=== PATIENT | female | born 1965 | race Caucasian/White ===

== ENCOUNTER 2018-06-25 14:20 | Inpatient (IN) ==
--- NOTE | 2018-06-25 17:33 | ED ---
HPI General Chief Complaint: Psychiatric Symptoms Stated Complaint: Psych Eval / Physent Time Seen by Provider: 06/25/18 16:58 Source: patient Mode of arrival: ambulatory Limitations: no limitations History of Present Illness HPI Narrative: The patient is a 53-year-old female who presents to the emergency department via family for psychiatric evaluation. The patient has a history of depression, recent hospitalization approximately 6 months ago in [place], [place]. The patient states she stopped taking her psychiatric medications approximately 1 week ago, has had increasing delusions according to the family. The patient saw her psychiatrist earlier today, Dr. El Moraes, who sent the patient to the emergency department for evaluation by psychiatry and admission. The patient apparently is having delusions in regards to cleaning, lice, a snake in the house, and family concerns regarding her well-being. The patient states she did recently travel to [place] and back , states she has had depression since her of cancer several years ago. The patient states her symptoms are secondary to use and Lysol. The patient denies any suicidal or homicidal ideation. She is tearful, does note depression and insomnia but denies any current suicidal ideation or homicidal ideation. Symptoms are moderate. MD complaint: feels depressed Onset (ago): week(s) Duration: intermittent History of same: Yes Relieving factors: none Exacerbating factors: none Context: new medication(s) Associated psychiatric symptoms: delusions Associated symptoms: denies other symptoms Treatments prior to arrival: placed on mental health hold Related Data Home Medications Medication Instructions Recorded Confirmed cyanocobalamin (vitamin B-12) 1,000 mcg IM QMONTH 06/25/18 06/25/18 diazepam 10 mg PO TID PRN 06/25/18 06/25/18 diphenhydramine HCl [Benadryl 25 mg PO Q4-6H 06/25/18 06/25/18 Allergy] risperidone 3 mg PO DAILY 06/25/18 06/25/18 temazepam 15 mg PO HS MDD 30 mg 06/25/18 06/25/18 Allergies Allergy/AdvReac Type Severity Reaction Status Date / Time No Known Allergies Allergy Unverified 06/25/18 17:27 Review of Systems Except as stated in HPI: all other systems reviewed are negative Constitutional Denies fever(s) Cardiovascular Denies chest pain and Denies dyspnea Respiratory Denies dyspnea Gastrointestinal Denies abdominal pain, Denies nausea and Denies vomiting Genitourinary Denies dysuria [facility] Medical History Medical History Depression (Acute) Social History Social History Substance History: Past History Smoking Status: Current every day smoker Tobacco Type: Cigarettes How Often Do You Have a Drink Containing Alcohol: Never Recent Travel in [facility] within the Last 8 Weeks: No Recent Out of Country Travel within the Last 8 Weeks: No Immunization History Tetanus Immunization: Unsure Hx Influenza Vaccine This Season: No Exam Narrative Exam Narrative: GENERAL: Awake, alert, nontoxic-appearing 53-year-old female who appears her stated age and is in no acute respiratory distress. The patient is tearful. SKIN: Focused skin assessment warm/dry. HEAD: Atraumatic. Normocephalic. EYES: Pupils equal and round. On injection secondary to crying. ENT: No nasal bleeding or discharge. Mucous membranes pink and moist. NECK: Trachea midline. No JVD. CARDIOVASCULAR: Regular rate and rhythm. No murmur appreciated. RESPIRATORY: No accessory muscle use. Clear to auscultation. Breath sounds equal bilaterally. GASTROINTESTINAL: Abdomen soft, non-tender, nondistended. MUSCULOSKELETAL: No obvious deformities. No clubbing. No cyanosis. No edema. NEUROLOGICAL: Awake and alert. No obvious cranial nerve deficits. Motor grossly within normal limits. Normal speech. PSYCHIATRIC: Tearful, insight and judgment appear normal. Course Initial Documented Vital Signs Temperature 98.3 F 06/25/18 15:21 Pulse Rate 92 H 06/25/18 15:21 Respiratory Rate 16 06/25/18 15:21 Blood Pressure 130/80 06/25/18 15:21 Pulse Oximetry 98 06/25/18 15:21 Last Documented Vital Signs Temperature 98.3 F 06/25/18 15:21 Pulse Rate 88 06/25/18 15:24 Respiratory Rate 20 06/25/18 15:24 Blood Pressure 124/74 06/25/18 15:24 Pulse Oximetry 99 06/25/18 15:24 Medical Decision Making MDM Narrative Medical decision making narrative: Labs were drawn and sent. Labs are unremarkable except for tox screen is positive for benzodiazepines and cannabinoids. Patient is medically cleared to be evaluated by psychiatry. Psychiatric evaluation was ordered. Disposition as per psych. The patient is urine has a few leukocytes and positive bacteria. She will be empirically treated for possible UTI while awaiting for culture results. Patient was given Keflex 500 mg p.o. and a prescription. Differential Diagnosis Differential Diagnosis: Differential diagnosis includes psychosis, depressive disorder with psychosis, bipolar affective disorder, schizoaffective disorder, schizophrenia, delirium, drug-induced mood disorder. Lab Data Lab results reviewed: Yes I reviewed the patient's lab results. Lab results narrative: Tox screen is positive for benzodiazepines and cannabinoids. Result diagrams: 06/25/18 17:20 06/25/18 17:20 Lab Results 06/25/18 06/25/18 06/25/18 Range/Units 17:20 17:20 17:40 WBC 5.2 (4.0-11.0) th/mm3 RBC 4.48 (4.00-5.30) mil/mm3 Hgb 14.2 (11.6-15.3) gm/dL Hct 41.3 (35.0-46.0) % MCV 92.2 (80.0-100.0) fL MCH 31.8 (27.0-34.0) pg MCHC 34.5 (32.0-36.0) % RDW 14.2 (11.6-17.2) % Plt Count 260 (150-450) th/mm3 MPV 7.8 (7.0-11.0) fL Neut % (Auto) 51.3 (16.0-70.0) % Lymph % (Auto) 32.7 (9.0-44.0) % Luna % (Auto) 13.1 H (0.0-8.0) % Eos % (Auto) 1.8 (0.0-4.0) % Baso % (Auto) 1.1 (0.0-2.0) % Neut # (Auto) 2.7 (1.8-7.7) th/mm3 Lymph # (Auto) 1.7 (1.0-4.8) th/mm3 Luna # (Auto) 0.7 (0.0-0.9) th/mm3 Eos # (Auto) 0.1 (0.0-0.4) th/mm3 Baso # (Auto) 0.1 (0.0-0.2) th/mm3 WBC Differential . Differential Comment Auto diff final Sodium 141 (136-145) meq/L Potassium 3.8 (3.5-5.1) meq/L Chloride 106 (98-107) meq/L Carbon Dioxide 28.3 (21.0-32.0) meq/L Anion Gap 7 (5-15) meq/L BUN 15 (7-18) mg/dL Creatinine 0.76 (0.50-1.00) mg/dL Estimated GFR 80 L (>89) mL/min Random Glucose 94 (74-106) mg/dL Calcium 9.2 (8.5-10.1) mg/dL Total Bilirubin 0.3 (0.2-1.0) mg/dL AST 10 L (15-37) U/L ALT 17 (10-53) U/L Alkaline Phosphatase 60 (45-117) U/L Total Protein 6.8 (6.4-8.2) g/dL Albumin 3.7 (3.4-5.0) g/dL TSH 0.781 (0.358-3.740) uIU/mL Urine Color (Yellw/Straw) Urine Clarity (Clear) Urine pH (5.0-8.5) Ur Specific [place] (1.002-1.035) Urine Protein (Neg-Trace) mg/dL Urine Glucose (UA) (Negative) mg/dL Urine Ketones (Negative) mg/dL Urine Occult Blood (Negative) Urine Nitrate (Negative) Urine Bilirubin (Negative) Urine Urobilinogen (Less than 2) mg/dL Ur Leukocyte Esterase (Negative) Urine RBC (0-3) /hpf Urine WBC (0-5) /hpf Ur Squamous Epith Cells (0-5) /hpf Urine Bacteria (None) /hpf Hyaline Casts (0-3) /lpf Urine Mucus (Occasional) /lpf Micro UA Comment Urine Culture Comments Urine Opiates Screen Neg (Neg) Ur Barbiturates Screen Neg (Neg) Ur Amphetamines Screen Neg (Neg) U Benzodiazepines Scrn Pos H (Neg) Urine Cocaine Screen Neg (Neg) U Cannabinoids Screen Pos H (Neg) Serum Alcohol Less than 3 (0-5) mg/dL 06/25/18 Range/Units 17:40 WBC (4.0-11.0) th/mm3 RBC (4.00-5.30) mil/mm3 Hgb (11.6-15.3) gm/dL Hct (35.0-46.0) % MCV (80.0-100.0) fL MCH (27.0-34.0) pg MCHC (32.0-36.0) % RDW (11.6-17.2) % Plt Count (150-450) th/mm3 MPV (7.0-11.0) fL Neut % (Auto) (16.0-70.0) % Lymph % (Auto) (9.0-44.0) % Luna % (Auto) (0.0-8.0) % Eos % (Auto) (0.0-4.0) % Baso % (Auto) (0.0-2.0) % Neut # (Auto) (1.8-7.7) th/mm3 Lymph # (Auto) (1.0-4.8) th/mm3 Luna # (Auto) (0.0-0.9) th/mm3 Eos # (Auto) (0.0-0.4) th/mm3 Baso # (Auto) (0.0-0.2) th/mm3 WBC Differential Differential Comment Sodium (136-145) meq/L Potassium (3.5-5.1) meq/L Chloride (98-107) meq/L Carbon Dioxide (21.0-32.0) meq/L Anion Gap (5-15) meq/L BUN (7-18) mg/dL Creatinine (0.50-1.00) mg/dL Estimated GFR (>89) mL/min Random Glucose (74-106) mg/dL Calcium (8.5-10.1) mg/dL Total Bilirubin (0.2-1.0) mg/dL AST (15-37) U/L ALT (10-53) U/L Alkaline Phosphatase (45-117) U/L Total Protein (6.4-8.2) g/dL Albumin (3.4-5.0) g/dL TSH (0.358-3.740) uIU/mL Urine Color [place] (Yellw/Straw) Urine Clarity Hazy H (Clear) Urine pH 5.0 (5.0-8.5) Ur Specific [place] 1.028 (1.002-1.035) Urine Protein 30 H (Neg-Trace) mg/dL Urine Glucose (UA) Negative (Negative) mg/dL Urine Ketones Trace H (Negative) mg/dL Urine Occult Blood Negative (Negative) Urine Nitrate Negative (Negative) Urine Bilirubin Negative (Negative) Urine Urobilinogen 4 or greater (Less than 2) mg/dL Ur Leukocyte Esterase Negative (Negative) Urine RBC 4 H (0-3) /hpf Urine WBC 2 (0-5) /hpf Ur Squamous Epith Cells <1 (0-5) /hpf Urine Bacteria Moderate H (None) /hpf Hyaline Casts 3 (0-3) /lpf Urine Mucus Moderate H (Occasional) /lpf Micro UA Comment Culture indicated Urine Culture Comments Culture indicated Urine Opiates Screen (Neg) Ur Barbiturates Screen (Neg) Ur Amphetamines Screen (Neg) U Benzodiazepines Scrn (Neg) Urine Cocaine Screen (Neg) U Cannabinoids Screen (Neg) Serum Alcohol (0-5) mg/dL Discharge Plan Discharge Disposition Patient Disposition: 30 Still Patient Discharge Condition Condition: Stable Discharge Details Diagnosis: Medical clearance for psychiatric admission Physicians Team ED Provider: Stephan Barragan Primary Care Provider: Lamin Oropeza Rxs /Orders / Referrals /Forms Prescriptions: No Action risperidone 3 mg Tablet 3 mg PO DAILY RF: 0 temazepam 15 mg Capsule 15 mg PO HS MDD 30 mg RF: 0 diphenhydramine HCl [Benadryl Allergy] 25 mg Tablet 25 mg PO Q4-6H RF: 0 diazepam 10 mg Tablet 10 mg PO TID PRN (Reason: Anxiety) RF: 0 cyanocobalamin (vitamin B-12) 1,000 mcg/mL Kit 1,000 mcg IM QMONTH RF: 0 Status ED Status: Medically Cleared
[2018-06-25 17:58] LABS: Baso # (Auto) 0.1 th/mm3 (0.0-0.2); Baso % (Auto) 1.1 % (0.0-2.0); Eos # (Auto) 0.1 th/mm3 (0.0-0.4); Eos % (Auto) 1.8 % (0.0-4.0); Hematocrit 41.3 % (35.0-46.0); Hemoglobin 14.2 gm/dL (11.6-15.3); Lymph # (Auto) 1.7 th/mm3 (1.0-4.8); Lymph % (Auto) 32.7 % (9.0-44.0); Mean Corpuscular HGB Conc 34.5 % (32.0-36.0); Mean Corpuscular Hemoglobin 31.8 pg (27.0-34.0); Mean Corpuscular Volume 92.2 fL (80.0-100.0); Mean Platelet Volume 7.8 fL (7.0-11.0); Mono # (Auto) 0.7 th/mm3 (0.0-0.9); Mono % (Auto) 13.1 % (0.0-8.0); Neut # (Auto) 2.7 th/mm3 (1.8-7.7); Neut % (Auto) 51.3 % (16.0-70.0); Platelet Count 260 th/mm3 (150-450); Red Blood Count 4.48 mil/mm3 (4.00-5.30); Red Cell Distribution Width 14.2 % (11.6-17.2); White Blood Count 5.2 th/mm3 (4.0-11.0)
[2018-06-25 18:15] LABS: Amphetamine Screen,Urine Neg (Neg); Barbiturate Screen,Urine Neg (Neg); Cannabinoid Screen,Urine Pos (Neg); Cocaine Screen,Urine Neg (Neg)
[2018-06-25 18:18] LABS: Bacteria,Urine Moderate /hpf; Bilirubin,Urine Negative (Negative); Clarity,Urine Hazy (Clear); Color,Urine Amber (Yellw/Straw); Glucose,Urine (UA) Negative (Negative); Hyaline Casts,Urine 3 /lpf (0-3); Leukocyte Esterase,Urine Negative (Negative); Mucus,Urine Moderate /lpf (Occasional); Nitrite,Urine Negative (Negative); Specific Gravity,Urine 1.028 (1.002-1.035); Squamous Epithelial Cell,Urine <1 /hpf (0-5); Urobilinogen,Urine 4 or Greater mg/dL (Less than 2)
[2018-06-25 18:21] LABS: Albumin 3.7 g/dL (3.4-5.0); Anion Gap 7 meq/L (5-15); Aspartate Aminotransferase 10 U/L (15-37); Blood Urea Nitrogen 15 mg/dL (7-18); Calcium 9.2 mg/dL (8.5-10.1); Carbon Dioxide 28.3 meq/L (21.0-32.0); Chloride 106 meq/L (98-107); Glomerular Filtration Rate 80 mL/min (>89); Glucose,Random 94 mg/dL (74-106); Potassium 3.8 meq/L (3.5-5.1); Sodium 141 meq/L (136-145)
[2018-06-25 18:23] LABS: Alanine Aminotransferase 17 U/L (10-53)
[2018-06-25 18:26] LABS: Opiate Screen,Urine Neg (Neg)
[2018-06-25 18:32] LABS: Alkaline Phosphatase 60 U/L (45-117); Thyroid Stimulating Hormone 0.781 uIU/mL (0.358-3.740); Total Protein 6.8 g/dL (6.4-8.2)
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
[2018-06-26] MEDS ORDERED: Aluminum/Magnesium/Simethacone Susp 30 ML UDC PO PRN (17:57)
[2018-06-26] MEDS ORDERED: LORazepam 1 MG Tablet PO PRN (17:57)
[2018-06-26] MEDS ORDERED: traZODone 50 MG Tablet PO PRN (17:57)
[2018-06-26] MEDS: Senna/Docusate Sodium 8.6/50 MG Tablet PO SCH (21:16)
[2018-06-27 08:29] LABS: Calcium 8.8 mg/dL (8.5-10.1); Carbon Dioxide 26.3 meq/L (21.0-32.0); Potassium 3.9 meq/L (3.5-5.1)
[2018-06-27 08:55] LABS: Chol/HDL Ratio 4.55 Ratio; Free T4 (Free Thyroxine) 0.99 ng/dL (0.76-1.46); HDL Cholesterol 49.8 mg/dL (40.0-60.0)
[2018-06-27] MEDS: Senna/Docusate Sodium 8.6/50 MG Tablet PO SCH ×2 (09:31→21:15)
[2018-06-27] MEDS ORDERED: Aluminum/Magnesium/Simethacone Susp 30 ML UDC PO PRN (11:45)
[2018-06-27] MEDS ORDERED: Benztropine Inj 2 MG/2 ML Ampul IM PRN (11:45)
[2018-06-27] MEDS ORDERED: Acetaminophen 325 MG Tablet PO PRN (11:45)
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
[2018-06-27] MEDS: Escitalopram 10 MG Tablet PO SCH (12:41)
[2018-06-27 16:49] LABS: Hemoglobin A1c 5.1 % (4.3-6.0)
[2018-06-28] MEDS: Escitalopram 10 MG Tablet PO SCH (09:15)
[2018-06-28] MEDS: Senna/Docusate Sodium 8.6/50 MG Tablet PO SCH (09:15)
--- NOTE | 2018-06-28 13:35 | ECG ---
Date Performed: 06/27/2018 Time Performed: 13:19:14 PTAGE: 53 years EKG: Sinus rhythm NORMAL ECG NO PREVIOUS TRACING DOCTOR: Chandler Zelaya Interpretating Date/Time 06/28/2018 13:33:11
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
== END 2018-06-28 18:30 | disposition home or self-care (01) ==
LOC: NEPD 14:20 → NEDA 06-26 17:54 → H260 06-26 20:10
PROVIDERS: ADMIT Psychiatry & Neurology Psychiatry; ATTEND Psychiatry & Neurology Psychiatry